=== PATIENT | male | born 1990 | race Two or more races ===

== ENCOUNTER 2024-06-22 20:56 | Emergency (ER) | payer MEDICAID, SELFPAY ==
[2024-06-22 20:56] VITALS: BMI 27.4
[2024-06-22 21:36] VITALS: BP 130/71; PULSE 90; RESP 20; TEMP 37; O2SAT 96
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
[2024-06-22] MEDS: KETOROLAC INJ 60 MG/2 ML VIAL 30 MG IM (22:03)
[2024-06-22 23:24] VITALS: BP 128/76; PULSE 88; RESP 18; TEMP 36.8; O2SAT 97
== END 2024-06-22 23:25 | disposition home or self-care (01) ==
PROVIDERS: Emergency Provider Emergency Medicine
DX: M25.511 Pain in right shoulder (principal)
CPT/HCPCS: 72040; 73030; 96372; 99283; J1885